=== PATIENT | female | born 1990 | race Hispanic/Latino ===

== ENCOUNTER 2016-10-17 19:42 | Emergency (ER) | payer OTHER ==
[~2016-10-17] VITALS: Ht 152.4 cm; Wt 81.8 kg
[2016-10-17 19:51] VITALS: BP 141/104; PULSE 80; RESP 16; O2SAT 100
--- NOTE | 2016-10-17 20:36 | ED.REPORT ---
HPI-Preg Under 20 Weeks Date of Service Oct 17, 2016 ED Provider: Dr. Salazar Pt is a 26 y/o female w/ a hx of A0 presenting to the ED c/o abdominal cramping onset today. She had a positive test 3 days ago which was also the day she began to experience vaginal bleeding which has decreased to be only spotting today. Her last menstrual period was September 28. Her previous 2 pregnancies resulted in C-sections. Pt denies lightheadedness, dizziness, CP, SOB, fatigue, fever. Nursing Notes Stated Complaint: ,CRAMPING AND BLEEDING Chief Complaint: & Delivery Nursing Notes Reviewed: Yes Allergies: Coded Allergies: No Known Allergies (Verified Allergy, Unknown, 10/17/16) No Active Prescriptions or Reported Meds General Time Seen by Provider: 20:41 Chief Complaint Abdominal cramping Context: : Known 1st trim Hx Obtained From: Patient Arrived By: Walk-in Onset Occurred: 5 - 8 hours ago Symptom Duration: Since onset Progression Since Onset: Unchanged Location: : Suprapubic Quality: Cramping, Painful Severity: Current: Mild Severity: Maximum: Mild Recent Healthcare: Recent doctor visit Past Medical History Past Medical History Denies Past Surgical History Reports: Smoking History Never Smoker Social History Alcohol Use: Denies alcohol use Drug Use: Denies drug use Occupation lives with family, no work or school Ambulatory Status Independent Review of Systems Constitutional: Denies: Chills, Fever Respiratory: Denies: Non-productive cough, Shortness of breath Cardiovascular: Denies: Chest pain GI: Reports: Abdominal pain, Denies: Nausea, Vomiting Female: Reports: Vaginal bleeding - abnl Neurologic: Denies: Dizziness, Lightheaded Complete sys rev & neg: except as marked. Physical Exam Initial Vital Signs Vital Signs (First) Date Time Temp Pulse Resp B/P Pulse Ox O2 Delivery O2 Flow Rate FiO2 10/17/16 19:51 36.9 80 16 141/104 100 Room Air Initial VS: Reviewed, Vital signs normal Head / Eyes: Atraumatic, Normocephalic, PERRL ENT: Mucous membranes moist, Conjunctiva normal, No scleral icterus Neck: Supple, Full range of motion Respiratory: Breath sounds normal, Clear to auscultation, No respiratory distress Cardiovascular: Regular rate & rhythm, Heart sounds normal, Intact distal pulses Extremities: Vascular intact, Neuro intact, No swelling Skin: Warm, Dry, No cyanosis Neurologic: Alert, Oriented, Nonfocal Psychiatric: Mood/affect normal, Behavior normal, Normal thought content General/Constitutional: Awake, Alert, No acute distress, Well appearing, Cooperative, Not toxic appearing Abdomen: Atraumatic, Soft, No guarding, No rebound, No distention, No palpable mass Tenderness/Guarding/Rebound: Positive: Tender suprapubic (mild) Interpretation & Diagnostics Lab Results Interpretation Result Diagram: 10/17/162034 Test 10/17/16 20:35 White Blood Count 9.9th/mm3 (3.8-10.1) Red Blood Count 4.62mil/mm3 (3.90-5.20) Hemoglobin 14.0g/dL (12.0-15.6) Hematocrit 41.0% (35.0-46.0) Mean Corpuscular Volume 88.7fL (81-100) Mean Corpuscular Hemoglobin 30.3pg (27.0-35.0) Mean Corpuscular Hemoglobin Concent 34.1% (32.0-37.0) Red Cell Distribution Width 12.5% (12.3-15.4) Platelet Count 242bil/L (150-400) Hold Blue Top Tube Received (Received) HCG Beta Subunit 7019mIU/mL Hold Bran Top Tube Received (Received) Re-Eval/Medical Decision Med Decision/Clinical Course 26-year-old female last menstrual period 09/28 with last week presenting with vaginal bleeding 2 days. He reports the bleeding is improved and only with a small amount of spotting today. HCG is 7000. Vital signs are stable. Ultrasound shows yolk sac/gest sac with small clot. Threatened . He has follow-up in 2 days with her [facility]. She is advised to return here if she has any worsening bleeding any sense symptoms anemia worsening abdominal pain, fevers, any other new or worsening symptoms. Re-Evaluation/Progress : Time of Eval: 23:20 Re-Evaluation/Progress Note: Pt rechecked. Discussed US findings and possibility of miscarriage. F/U instructions and RTER warnings given. All questions addressed. Counseled Regarding: Diagnosis, Lab results, Need for follow-up, When/why to return to ED Discharge & Departure Primary Impression: Threatened miscarriage in early Disposition: Home Discharge Condition All VS Reviewed: Yes Condition: Stable Patient Instructions: Threatened Miscarriage (ED) Additional Instructions: The ultrasound is concerning for miscarriage but this is not definitive at this time. I recommend you see your primary care doctor in 2-3 days for a recheck. Return to the emergency department if you experience profuse vaginal bleeding, worsening abdominal pain, lightheadedness, dizziness, fever, chest pain, trouble breathing, or for other concerning symptoms. Referrals: KIERA SHARMA (PCP) Scribe Attestation Portions of this note were transcribed by Osman Martinez. I, Dr. Salazar personally performed the history, physical exam and medical decision-making; I reviewed and confirmed the accuracy of the information in the transcribed note. copies to: KIERA SHARMA Ben M MD Oct 17, 2016 20:36 OSMAN MARTINEZ Oct 17, 2016 20:44
[2016-10-17 20:39] LABS: Mean Corpuscular Hemoglobin 30.3 pg (27.0-35.0); Mean Corpuscular Volume 88.7 fL (81-100)
[2016-10-17] MEDS ORDERED: HYDROcodone-APAP 5-325 mg Tablet PO ONE (20:45)
[2016-10-17 23:55] VITALS: BP 146/108; PULSE 87; RESP 16; O2SAT 100
--- NOTE | 2016-10-18 09:22 | DRSVH ---
+/- 7 days from 14 weeks to 15 weeks 6 days gestation, +/- 10 days from 16 weeks to 21 weeks 6 days g estation, +/- 2 weeks from 22 weeks to 27 weeks 6 days gestation, +/- 3 weeks for 28 weeks gestation or later. PROCEDURE: US OB<14 WKS+OB TRANSVAG INDICATIONS: vag bleeding OUTSIDE/PRIOR DATING DATA: Last menstrual period (LMP): 08/29/16 LMP-based estimated date of delivery (LUCERO): 06/05/17. First dating scan (date and location): 10/17/16. Estimated date of delivery (LUCERO) from first dating scan: 06/12/17 by mean gestational sac size.. TECHNIQUE: Real-time scanning was performed of the fetus and maternal pelvic organs, with image documentation. Endovaginal scanning was also performed to better visualize the fetus and maternal ovaries. COMPARISON: None. FINDINGS: Embryo: OB-[employer]AM[employer] HEL[employer] Ultrasound Procedure Report Early Gestation [employer] Mean Gestational Sac Diameter: 9.80 mm Gestational Age (MGSD): 5 weeks, 5 days Comments: Yolk sac identified. No pole at this time. Sac is positioned within the lower uteri ne segment. Perigestational is a hematoma measuring 2.3 x 1.8 x 2.9 cm. Measurement variability in dating: +/- 4 weeks by LMP, +/- 7 days by mean sac diameter (use before 6 weeks gestation if crown-rump length not able to be measured), +/- 5 days by crown-rump length (up t o 8 weeks 6 days gestation), +/- 7 days by crown-rump length (from 9 weeks to 13 weeks 6 days gestati on). Maternal organs: Ovaries within normal limits. Limited images through the kidneys demonstrate no hy dronephrosis. IMPRESSION: Gestational sac positioned within the lower uterine segment measuring 1 cm corresponding to 5 weeks 5 days with large baldomero-gestational sac hematoma. A yolk sac is identified but no po le seen at this time. If indicated, repeat ultrasound in one week could be performed to assess viability. Note: These findings are concordant with the preliminary interpretation. Dictated by: Anuj FABIAN Interpreted: Jory El MD on 10/18/2016 at 8:46 Approved by: Jory El M.D. on 10/18/2016 at 9:19
== END 2016-10-17 23:39 | disposition home or self-care (01) ==
LOC: SED 19:42
DX: O20.0 Threatened abortion (principal)

== ENCOUNTER 2016-12-09 17:24 | Emergency (ER) | payer OTHER ==
[~2016-12-09] VITALS: Ht 152.4 cm; Wt 86.4 kg
[2016-12-09 17:29] VITALS: BP 119/83; PULSE 79; RESP 20; O2SAT 99
--- NOTE | 2016-12-09 19:25 | ED.REPORT ---
HPI- Female Date of Service Dec 09, 2016 ED Provider: Juan Dawson MD The pt is a 26 y/o female with a hx of who presents to the ED complaining of abnormal vaginal bleeding, onset yesterday. The pt had a D&C [address] Rosemary Vences at [facility]. She returned to [facility] ED for two weeks of bleeding after the D&C. She was informed of a clot in her uterus which would pass on its own. She did not experience any bleeding last week. However, since yesterday she has soaked one pad about every 2 hours. Associated sx include mild abdominal cramping. She denies fever and vomiting. The pt has been sexually active since the D&C. She is currently on a control pill. Nursing Notes Stated Complaint: VAG BLEEDING/3 WEEKS AFTER D & C Chief Complaint: Female Abdominal Pain Nursing Notes Reviewed: Yes Allergies: Coded Allergies: No Known Allergies (Verified Allergy, Unknown, 10/17/16) No Active Prescriptions or Reported Meds General Time Seen by MD: 19:12 Chief Complaint Vaginal bleeding... (Moderate) Hx Obtained From: Patient Arrived By: Walk-in Sudden in Onset?: Yes Onset Occurred: Yesterday Context of Onset: Other Symptom Duration: Since onset Location: : Suprapubic Quality: Cramping Radiation: Does not radiate Severity: Current: Mild Severity: Maximum: Mild Recent Healthcare: Recent doctor visit Past Medical History Past Medical History Denies Past Surgical History Reports: Smoking History Never Smoker Social History Alcohol Use: Denies alcohol use Drug Use: Denies drug use Occupation lives with family, no work or school Ambulatory Status Independent Review of Systems Constitutional: Denies: Fever GI: Reports: Abdominal pain, Denies: Vomiting Female: Reports: Vaginal bleeding - abnl Complete sys rev & neg: except as marked. Physical Exam Physical Exam Notes: On orthostatics, heart rate does increase by 31 however blood pressure increased markedly as well. She reported feeling "a little dizzy". Initial Vital Signs Vital Signs (First) Date Time Temp Pulse Resp B/P Pulse Ox O2 Delivery O2 Flow Rate FiO2 12/09/16 17:29 37.0 79 20 119/83 99 Room Air Initial VS: Reviewed Head / Eyes: Atraumatic, Normocephalic Neck: Supple, Non-tender, Full range of motion Extremities: Vascular intact, Neuro intact, No swelling, No tenderness Skin: Warm, Dry, No cyanosis Neurologic: Alert, Oriented, Nonfocal Female Genitourinary: Bag Inspector present, Atraumatic, External genitalia NL, No cervical motion tend, No adnexal mass, No adnexal tenderness, No uterine enlargement Small amount of blood in the baginal vault. Trace bleeding at present. Cervix normal. General/Constitutional: Awake, Alert, No acute distress, Well appearing, Cooperative, Not toxic appearing Respiratory / Chest: Atraumatic, Breath sounds NL, Breath sounds = bilat, No respiratory distress, No rales, No rhonchi, No wheezing Cardiovascular: Heart rate NL, Regular rhythm, Heart sounds NL, No gallop, No murmurs, No rubs Abdomen: Atraumatic, Soft, Non-tender, No guarding, No rebound, BS normoactive Interpretation & Diagnostics Lab Results Interpretation Result Diagram: 12/09/16200312/09/16 2004 Test 12/09/16 19:30 12/09/16 20:04 Hold Urine Received (Received) White Blood Count 9.5th/mm3 (3.8-10.1) Red Blood Count 4.44mil/mm3 (3.90-5.20) Hemoglobin 13.2g/dL (12.0-15.6) Hematocrit 38.4% (35.0-46.0) Mean Corpuscular Volume 86.5fL (81-100) Mean Corpuscular Hemoglobin 29.7pg (27.0-35.0) Mean Corpuscular Hemoglobin Concent 34.4% (32.0-37.0) Red Cell Distribution Width 12.3% (12.3-15.4) Platelet Count 246bil/L (150-400) Sodium Level 137mEq/L (134-144) Potassium Level 3.9mEq/L (3.5-5.2) Chloride Level 99mEq/L (97-108) Carbon Dioxide Level 22mmol/L (18-29) Blood Urea Nitrogen 12mg/dL (6-20) Creatinine 0.62mg/dL (0.57-1.00) Estimat Glomerular Filtration Rate 168mL/min (>59) Glucose Level 107mg/dL (60-99) Calcium Level 8.6mg/dL (8.5-10.1) Total Bilirubin 0.2mg/dL (0.0-1.2) Aspartate Amino Transf (AST/SGOT) 15U/L (0-50) Alanine Aminotransferase (ALT/SGPT) 16U/L (0-32) Alkaline Phosphatase 56U/L (25-150) Total Protein 7.2g/dL (6.4-8.4) Albumin 3.8g/dL (3.4-5.0) Hold Bran Top Tube Received (Received) Lab Results Interpretation: Urine test negative Urine dip positive for leukocytes Re-Eval/Medical Decision Med Decision/Clinical Course 26-year-old female who is not complaining of abnormal vaginal bleeding. She had a D&C 3 weeks ago in [place]. Has had some intermittent problems with bleeding since then and reportedly an ultrasound at another facility showed clots in the uterus. Her blood count is normal, she does not have active bleeding at present. I believe that she is safe to follow up as an outpatient with her resident intern. Source of Hx: Old records Re-Evaluation/Progress #1: Time of Eval: 20:35 Re-Evaluation/Progress Note: Rechecked pt. She states she was slighlty dizzy when her orthostatic BP was taken. Re-Evaluation/Progress #2: Time of Eval: 22:09 Patient Status: Condition improved Re-Evaluation/Progress Note: Rechecked pt. Discussed lab results, diagnosis and plan to discharge. Pt understands and agrees with the plan. F/U instruction and RTER warning given. All questions addressed. Counseled Regarding: Diagnosis, Lab results, Need for follow-up, When/why to return to ED Discharge & Departure Impression: Primary Impression: Abnormal vaginal bleeding Disposition: Home Discharge Condition All VS Reviewed: Yes Condition: Stable Additional Instructions: Emergency department evaluation tonight included interview, examination labs and observation in the emergency department. At present we do not know ongoing significant bleeding Your lab results are reassuring. Your blood count is normal. Make an appointment with your resident intern tomorrow. more than Return to the emergency department in case you use 3 pads for more than an hour or any new or concerning symptoms. [facility]: [facility] ([facility]) Scribe Attestation Portions of this note were transcribed by Robin Cho. I,, personally performed the history,physical exam and medical decision-making;I reviewed and confirmed the accuracy of the information in the transcribed note. Signed by Lesly Forrester. 12/09/16 copies to: [facility] Donald L MD Dec 09, 2016 19:25 Robin Cho Dec 09, 2016 19:44
[2016-12-09 20:01] VITALS: BP_SYST 109; BP_SYST 134; BP_DIAS 78; BP_DIAS 94; PULSE 63; PULSE 94
[2016-12-09] MEDS ORDERED: 0.9% Sodium Chloride 1,000 ML IV ONE (20:40)
[2016-12-09 21:10] LABS: Mean Corpuscular Hemoglobin 29.7 pg (27.0-35.0); Mean Corpuscular Volume 86.5 fL (81-100)
[2016-12-09 22:31] VITALS: BP 120/75; PULSE 62; RESP 16
== END 2016-12-09 22:17 | disposition home or self-care (01) ==
LOC: SED 17:24
DX: N93.9 Abnormal uterine and vaginal bleeding, unspecified (principal)
CPT/HCPCS: 36415; 80053; 81025; 85027; 96360; 99284; J7030